=== PATIENT | male | born 1935 | race Caucasian/White ===

== ENCOUNTER 2017-03-28 18:32 | Observation (INO) | payer OTHER ==
[~2017-03-28] VITALS: Ht 170.2 cm; Wt 76.1 kg
[~2017-03-28 18:32] MED LIST: AMITIZA8 MICROGRA PO; ASPIR-LOW81 MG PO; ASPIRIN325 MG PO; ASPIRIN500 MG PO; ATORVAS PO; ATORVASTATIN CA80 MG PO; AZITHROMYCIN250 MG1 PO; BACTRIM,SEPT1 TABLET PO; CELEXA10 MG PO; CENTRUM SILV1 TABLET PO; CENTRUM SILVER1 EAC3 PO; CENTURY ADULTS1 EACH PO; CIPRO500 MG PO; CITALOPRAM HBR10 MG PO; CRESTOR40 MG PO; CYCLOBENZAPRINE5 M1 PO; DILAUDID2 MG PO; ELIQUIS5 MG PO; ENDOCET 10-3251 EACH PO; ENDOCET 5-3251 EACH PO; FISH OIL 1,2001 EAC4 PO; FISH OIL300 MG PO; FLAGYL500 MG PO; GABAPENTIN300 MG PO; GABAPENTIN600 MG PO; LIPITOR80 MG PO; LOPRESSOR25 MG PO; LOPRESSOR50 MG PO; LORAZEPAM0.5 MG PO; METOPROLOL SUCC50 MG PO; METOPROLOL TART50 MG PO; MIRALAX17 GM PO; MORPHINE SULFAT15 M1 PO; MORPHINE SULFAT30 M2 PO; NEURONTIN300 MG PO; NORCO 5/3251 TABLET PO; OMEPRAZOLE20 M3 PO; OMEPRAZOLE20 MG PO; OMEPRAZOLE40 M1 PO; PERCOCET 5/31 TABLET PO; PRAVASTATIN SOD40 MG PO; PRILOSEC20 MG PO; SENNA8.6 M1 PO; TRIAMCINOLONE A15 GM TP; VISINE A.C300 DROP/1 BOTH EYES; VITAMIN D2400 UNIT PO; VITAMIN D31000 UNIT PO; VITAMIN D32000 UNIT PO; VITAMIN D400 INTUNI PO; XARELTO20 MG PO; ZANTAC300 MG PO; ZOFRAN8 MG PO
[2017-03-28 19:22] LABS: HEMATOCRIT 38.5 % (38.0-50.0); MCH 30.4 PG (29.0-34.0); MCHC 33.5 G/DL (30.0-36.0); MCV 90.6 FL (86-99); RBC DIS.WIDTH-CV 16.3 % (11.8-14.6); RBC DIS.WIDTH-SD 54.3 % (39-53); RED BLOOD COUNT 4.25 M/uL (4.00-5.50); WHITE BLOOD COUNT 5.9 K/uL (4.1-10.2)
[2017-03-28 19:51] LABS: TROP-I INTERPRETATION NEGATIVE; TROPONIN-I 0.01 ng/mL (0.0-0.30)
[2017-03-28 19:56] LABS: CHLORIDE 102 mEq/L (99-109); POTASSIUM 4.9 mEq/L (3.7-5.4); SODIUM 140 mEq/L (136-147)
[2017-03-28 19:59] LABS: GLUCOSE 94 mg/dL (70-99)
[2017-03-28 20:00] LABS: ANION GAP 8 MEQ/L (2-14); TOTAL BILIRUBIN 0.8 mg/dL (0.0-1.0)
[2017-03-28 20:02] LABS: ALKALINE PHOSPHATASE 64 IU/L (3-129); GFR ESTIMATE (CALCULATED) > 59 mL/min/
[2017-03-28 20:03] LABS: UREA NITROGEN (BUN) 18 mg/dL (9-23)
[2017-03-28 20:04] LABS: DIRECT BILIRUBIN 0.4 mg/dL (0.0-0.3)
[2017-03-28 20:06] LABS: LIPASE 15 U/L (1.0-51.0)
[2017-03-28 20:06] LABS: ADD MIUA? NO; BILIRUBIN NEGATIVE; BLOOD NEGATIVE; COLOR STRAW ((YELLOW)); GLUCOSE (STRIP) NEGATIVE; KETONES NEGATIVE; LEUKOCYTES NEGATIVE; NITRITE NEGATIVE; PROTEIN (STRIP) NEGATIVE; SPECIFIC GRAVITY 1.008 (1.000-1.030); UCUL ADDED? NO; UROBILINOGEN 0.2 MG/DL (0.2-1.0)
[2017-03-28 20:34] LABS: MEAN PLAT.VOLUME 11.9 uM^3 (9.0-12.4); PLAT.SUFFICIENCY ADEQUATE; PLATELET COUNT 230 K/uL (156-360)
[2017-03-28] MEDS ORDERED: XARELTO20 MG PO (22:07)
[2017-03-28] MEDS ORDERED: REPATHA SY140 MG/1 M SC (22:13)
[2017-03-28 23:27] VITALS: BP 179/87
[2017-03-29 04:15] VITALS: BP 146/78
[2017-03-29 11:26] VITALS: BP 99/55
[2017-03-29 15:30] VITALS: BP 108/57
[2017-03-29] MEDS ORDERED: CIPRO500 MG PO (17:52)
== END 2017-03-29 18:47 | disposition home or self-care (01) ==
LOC: EME 18:32 → EDOF 22:12 → 5WEST 23:11
PROVIDERS: Emergency Medicine
DX: R10.31 Right lower quadrant pain (principal); K59.00 Constipation, unspecified; G89.29 Other chronic pain; M54.5 Low back pain; F11.20 Opioid dependence, uncomplicated; I48.0 Paroxysmal atrial fibrillation; I25.10 Atherosclerotic heart disease of native coronary artery without angina pectoris; I25.2 Old myocardial infarction; I10 Essential (primary) hypertension; E78.5 Hyperlipidemia, unspecified; Z79.01 Long term (current) use of anticoagulants; D64.9 Anemia, unspecified; F41.9 Anxiety disorder, unspecified; F32.9 Major depressive disorder, single episode, unspecified
CPT/HCPCS: 74177; 80048; 80076; 81003; 83690; 84484; 85027; 93005; 99281; 99285; G0378; J0744; J2270; J2405; J7030

== ENCOUNTER 2017-06-30 10:21 | Emergency (ER) | payer OTHER ==
[~2017-06-30] VITALS: Ht 170.2 cm; Wt 78.3 kg
[~2017-06-30 10:21] MED LIST changes: +REPATHA SY140 MG/1 M SC
[2017-06-30 11:07] LABS: MCHC 34.6 G/DL (30.0-36.0); MCV 89.4 FL (86-99); MEAN PLAT.VOLUME 11.6 uM^3 (9.0-12.4); PLATELET COUNT 169 K/uL (156-360); RBC DIS.WIDTH-SD 52.7 % (39-53); RED BLOOD COUNT 4.36 M/uL (4.00-5.50); WHITE BLOOD COUNT 11.1 K/uL (4.1-10.2)
[2017-06-30 11:18] LABS: CHLORIDE 101 mEq/L (99-109); POTASSIUM 3.6 mEq/L (3.7-5.4); SODIUM 136 mEq/L (136-147)
[2017-06-30 11:20] LABS: GLUCOSE 179 mg/dL (70-99)
[2017-06-30 11:21] LABS: ANION GAP 10 MEQ/L (2-14)
[2017-06-30 11:22] LABS: TOTAL BILIRUBIN 1.7 mg/dL (0.0-1.0)
[2017-06-30 11:24] LABS: ALKALINE PHOSPHATASE 89 IU/L (3-129); GFR ESTIMATE (CALCULATED) > 59 mL/min/
[2017-06-30 11:25] LABS: UREA NITROGEN (BUN) 17 mg/dL (9-23)
[2017-06-30 14:00] VITALS: BP 179/104
[2017-06-30 14:29] LABS: ADD MIUA? NO; BILIRUBIN NEGATIVE; BLOOD NEGATIVE; COLOR YELLOW ((YELLOW)); GLUCOSE (STRIP) 150; KETONES 5; LEUKOCYTES NEGATIVE; NITRITE NEGATIVE; PROTEIN (STRIP) 30; SPECIFIC GRAVITY 1.015 (1.000-1.030); UCUL ADDED? NO; UROBILINOGEN 0.2 MG/DL (0.2-1.0)
[2017-06-30] MEDS ORDERED: BENTYL20 MG PO (16:14)
[2017-06-30] MEDS ORDERED: ZOFRAN ODT4 MG PO (16:14)
== END 2017-06-30 17:35 | disposition home or self-care (01) ==
LOC: EME → EDBD 10:21 → EME 17:35
PROVIDERS: Emergency Medicine
DX: R10.9 Unspecified abdominal pain (principal); R11.10 Vomiting, unspecified; R19.7 Diarrhea, unspecified; I48.91 Unspecified atrial fibrillation; I25.2 Old myocardial infarction; I10 Essential (primary) hypertension; K21.9 Gastro-esophageal reflux disease without esophagitis; E78.5 Hyperlipidemia, unspecified; Z95.5 Presence of coronary angioplasty implant and graft; Z85.828 Personal history of other malignant neoplasm of skin; Z79.01 Long term (current) use of anticoagulants; Z87.891 Personal history of nicotine dependence
CPT/HCPCS: 74177; 80053; 81003; 85027; 87493; 93005; 99281; 99285; J2060; J2405; J7030